=== PATIENT | female | born 1965 ===

== ENCOUNTER → 2018-04-29 | Day surgery (SDC) | payer OTHER ==
[~2018-04-29] VITALS: Ht 160 cm; Wt 90.7 kg
[~2018-04-29] MED LIST: CELEXA20 MG PO; DIOVAN HCT 3201 EAC1 PO; NORVASC5 MG PO
== END | disposition home or self-care (01) ==
LOC: ADM 04-23 09:30 → CIR.AMB 06:33
DX: E04.1 Nontoxic single thyroid nodule (principal); D34 Benign neoplasm of thyroid gland; E06.3 Autoimmune thyroiditis